=== PATIENT | female | born 1990 | race Native Hawaiian/Other Pacific Islander ===

== ENCOUNTER 2022-02-17 01:10 | Emergency (ER) | payer BC ==
[~2022-02-17] VITALS: Ht 160 cm; Wt 68.5 kg
[2022-02-17 02:34] LABS: POTASSIUM 3.4 mmol/L (3.6-5.2)
[2022-02-17 02:43] LABS: PLATELET COUNT 278 K/uL (152-353)
[2022-02-17 05:25] VITALS: BP 116/75; TEMP 98
== END 2022-02-17 05:25 | disposition short-term general hospital (02) ==
LOC: ED 01:10
PROVIDERS: Emergency Medicine Emergency Medical Services
DX: R10.32 Left lower quadrant pain (principal); Z3A.01 Less than 8 weeks gestation of pregnancy
CPT/HCPCS: 80048; 81000; 81025; 82150; 83690; 84702; 85027; 96360; 96374; 96375; 99284; J2270; J2405

== ENCOUNTER 2023-01-14 03:10 | Emergency (ER) | payer OTHER ==
[~2023-01-14] VITALS: Ht 160 cm; Wt 64.4 kg
[2023-01-14 04:13] VITALS: BP 116/76; TEMP 97
== END 2023-01-14 04:13 | disposition home or self-care (01) ==
LOC: ED 03:10
DX: K92.0 Hematemesis (principal); R04.0 Epistaxis; J01.80 Other acute sinusitis
CPT/HCPCS: 81025; 99283